=== PATIENT | male | born 1990 | race Caucasian/White ===

== ENCOUNTER 2017-06-29 19:21 | Emergency (ER) | payer MEDICAID, OTHER ==
[~2017-06-29] VITALS: Ht 172.7 cm; Wt 68.2 kg
[2017-06-29 19:30] VITALS: Ht 172.7 cm; Wt 68.2 kg
[2017-06-29] MEDS ORDERED: LORAZEPAM 2 MG INJ IM ONE (20:00)
[2017-06-29] MEDS ORDERED: SOD CHLORIDE 0.9% 500 ML IV ONE (20:30)
--- NOTE | 2017-06-29 21:02 | RADRPT ---
PROCEDURE: XR Chest. CLINICAL INDICATION: Heart palpitations. Chest pain. TECHNIQUE: Single frontal chest x-ray. COMPARISON: None available FINDINGS: The lungs volumes are diminished. There are compressive changes with vascular crowding and basilar atelectasis. No acute infiltrate is seen. The cardiomediastinal silhouette is normal. The base of the heart is elevated due to low lung volumes. The surrounding soft tissues and osseous structures are unremarkable. IMPRESSION: 1. Low lung volumes with compressive changes and basilar atelectasis. 2. Otherwise, unremarkable chest x-ray. No acute infiltrate is seen. RPTAT: HMJB .Eriberto Zendejas MD, MD Date Time Electronically viewed and signed by .Eriberto Zendejas MD, on 06/29/2017 21:02 .B/
[2017-06-29 22:48] VITALS: BP 187/90; PULSE 89; RESP 20
[2017-06-29] MEDS ORDERED: ALPR0.5T PO (23:24)
--- NOTE | 2017-06-29 23:35 | ERD ---
ER Documentation Chief Complaint Chief Complaint HP WITH CP FOLLOWING METH INGESTION HPI 87-year-old male presents emergency room for feeling his heart racing. Occurred approximately 3 hours ago. He has absolutely no chest pain or shortness of breath. Denies nausea and vomiting. States that he is used meth before and has not had palpitations like this. Is otherwise healthy and feels well except for the racing heart. Denies lightheadedness or dizziness. He has had no fevers or chills and denies IV drug use. ROS All systems reviewed and are negative except as per history of present illness. Medications Home Meds Active Scripts Alprazolam* (Xanax*) 0.5 Mg Tab, 0.5 MG PO Q8H Y for ANXIETY, #5 TAB Prov:MARK ROSALES DO 06/29/17 PMhx/Soc Medical and Surgical Hx: pt denies Medical Hx, pt denies Surgical Hx Hx Alcohol Use: Yes Hx Substance Use: Yes (METH) Hx Tobacco Use: No Smoking Status: Never smoker Physical Exam Vitals Vital Signs Date Time Temp Pulse Resp B/P Pulse Ox O2 Delivery O2 Flow Rate FiO2 06/29/17 22:48 89 20 187/90 99 Room Air 06/29/17 19:30 99.5 120 20 154/100 98 Physical Exam Const: [] Mild distress Head: Atraumatic Eyes: Normal Conjunctiva, pupils equal and reactive to light ENT: Normal External Ears, Nose and Mouth. Neck: Full range of motion..~ No JVD Resp: Clear to auscultation bilaterally Cardio: Regular tachycardia, no murmurs Abd: Soft, non tender, non distended. Normal bowel sounds Skin: No petechiae or rashes Back: No midline or flank tenderness Ext: No cyanosis, or edema Neur: Awake and alert and oriented 3, no focal deficits, cranial 2 through 12 intact, conversive without slurred speech. Psych: Normal Mood and Affect Results 24 hrs Laboratory Tests Test 06/29/17 19:33 Troponin I < 0.012ng/ml Current Medications Medications (Trade) Dose Ordered Sig/Cedric Route PRN Reason Start Time Stop Time Status Last Admin Dose Admin Lorazepam 1 mg 1 mg ONCE ONCE IM 06/29/17 20:00 06/29/17 20:01 DC 06/29/17 20:00 Sodium Chloride (NS) 500 ml @ 500 mls/hr Q1H ONCE IV 06/29/17 20:30 06/29/17 21:29 DC 06/29/17 20:47 Procedures/MDM 27-year-old male palpitations following meth ingestion. No signs of ischemia on EKG. Was given 1 mg of Ativan and 500 cc of IV fluids normalize his heart rate and take away all of his symptoms. Same symptomatic currently managed discharge with instructions see primary care doctor in the next 2 days and obtain an echocardiogram. Negative troponin also discharging with 5 tabs of Xanax. EKG interpretation: Sinus tachycardia, right axis deviation, mild artifact, no ST or T-wave changes concerning for acute ischemia. Abnormal EKG Chronic monitor interpretation: Sinus tachycardia followed by normal sinus rhythm without arrhythmia Departure Diagnosis: Primary Impression: Methamphetamine abuse Additional Impressions: Tachycardia Right axis deviation Condition: Stable Patient Instructions: Understanding Methamphetamine Abuse and Addiction, Sinus Tachycardia Referrals: [facility] YOU HAVE RECEIVED A MEDICAL SCREENING EXAM AND THE RESULTS INDICATE THAT YOU DO NOT HAVE A CONDITION THAT REQUIRES URGENT TREATMENT IN THE EMERGENCY DEPARTMENT. FURTHER EVALUATION AND TREATMENT OF YOUR CONDITION CAN WAIT UNTIL YOU ARE SEEN IN YOUR DOCTORS OFFICE WITHIN THE NEXT 1-2 DAYS. IT IS YOUR RESPONSIBILITY TO MAKE AN APPOINTMENT FOR FOLOW-UP CARE. IF YOU HAVE A PRIMARY DOCTOR --you should call your primary doctor and schedule an appointment IF YOU DO NOT HAVE A PRIMARY DOCTOR YOU CAN CALL OUR PHYSICIAN REFERRAL HOTLINE AT IF YOU CAN NOT AFFORD TO SEE A PHYSICIAN YOU CAN CHOSE FROM THE FOLLOWING [facility] [address] [facility]. [facility] [address] [email or web address] [address] [facility] [facility] [address] [facility]. [facility] [address] [facility]. [facility]. [address] Additional Instructions: Llame al doctor AD y josue nayeli RAUDEL PARA DENTRO DE 1-2 FULLER. Consigue un referral para un ECHOCARDIOGRAMA. Dgale a la secretaria que nosotros le instruimos hacer esta raudel.Avise o llame si rodriguez condicin se empeora antes de la raudel. Regresa aqui si peor o no mejor. MARK ROSALES DO Jun 29, 2017 23:35
== END 2017-06-29 23:00 | disposition home or self-care (01) ==
LOC: EDBD 19:21 → E/R 19:21
DX: F15.10 Other stimulant abuse, uncomplicated (principal); R94.31 Abnormal electrocardiogram [ECG] [EKG]; R40.2142 Coma scale, eyes open, spontaneous, at arrival to emergency department; R40.2252 Coma scale, best verbal response, oriented, at arrival to emergency department; R40.2362 Coma scale, best motor response, obeys commands, at arrival to emergency department
CPT/HCPCS: 36415; 71010; 84484; 93005; 96372; J2060; J7040; Z7502

== ENCOUNTER 2017-07-01 23:19 | Emergency (ER) | payer SELFPAY ==
[~2017-07-01] VITALS: Ht 170.2 cm; Wt 75.9 kg
[~2017-07-01 23:19] MED LIST: ALPR0.5T PO
[2017-07-02] VITALS: Ht 170.2 cm; Wt 75.9 kg
--- NOTE | 2017-07-02 03:13 | ERD ---
ER Documentation Chief Complaint Chief Complaint pt reports palpitations today HPI 27-year-old male presents here to emergency department for complaints of palpitation episodes on and off today, patient was seen in the emergency department 2 days ago, was diagnosed of anxiety, patient does admit to feeling anxious. Patient was given Ativan which helped with some of his symptoms. At this time, patient denies any pain. His palpitations has been improved and resolved. Patient denies any shortness of breath. ROS All systems reviewed and are negative except as per history of present illness. Medications Home Meds Active Scripts Alprazolam* (Xanax*) 0.5 Mg Tab, 0.5 MG PO Q8H Y for ANXIETY, #5 TAB Prov:MARK ROSALES DO 06/29/17 Allergies Allergies: Coded Allergies: No Known Allergy (Unverified , 07/02/17) PMhx/Soc Medical and Surgical Hx: pt denies Medical Hx, pt denies Surgical Hx Hx Alcohol Use: Yes Hx Substance Use: Yes (METH) Hx Tobacco Use: No Smoking Status: Never smoker FmHx Family History: No coronary disease, No diabetes, No other Physical Exam Vitals Vital Signs Date Time Temp Pulse Resp B/P Pulse Ox O2 Delivery O2 Flow Rate FiO2 07/02/17 00:00 98.3 78 16 156/87 99 Physical Exam GENERAL: The patient is well developed and appropriate for usual state of health, in no apparent distress. CHEST: Clear to auscultation bilaterally. There are no rales, wheezes or rhonchi. HEART: Regular rate and rhythm. No murmurs, clicks, rubs or gallops. No S3 or S4. ABDOMEN: Soft, nontender and nondistended. Good bowel sounds. No rebound or guarding. No gross peritonitis. No gross organomegaly or masses. No Key sign or McBurney point tenderness. BACK: No midline or flank tenderness. EXTREMITIES: Equal pulses bilaterally. There is no peripheral clubbing, cyanosis or edema. No focal swelling or erythema. Full range of motion. Grossly neurovascularly intact. NEURO: Alert and oriented. Cranial nerves 2-12 intact. Motor strength in all 4 extremities with 5/5 strength. Sensation grossly intact. Normal speech and gait. SKIN: There is no apparent rash or petechia. The skin is warm and dry. HEMATOLOGIC AND LYMPHATIC: There is no evidence of excessive bruising or lymphedema. No gross cervical, axillary, or inguinal lymphadenopathy. Results 24 hrs Patient was ordered to have EKG to be done, upon calling the patient in the waiting area, patient cannot be found, patient heart rate was normal upon initial evaluation. Procedures/MDM Medical Decision Making: Pt symptoms most likely was consistent with anxiety. There is low suspicion for cardiopulmonary emergencies at this time. Patient has low risk factors. EKG was not done since patient was not found anymore and eloped. There is low suspicion for aortic aneurysm, myocardial infarction, pneumothorax, pleural effusion, pulmonary embolism, or any other cardiopulmonary emergencies at this time. Dispostion: Eloped. Stable Disclaimer: Inadvertent spelling and grammatical errors are likely due to EHR/ dictation software use and do not reflect on the overall quality of patient care. Also, please note that the electronic time recorded on this note does not necessarily reflect the actual time of the patient encounter. Departure Diagnosis: Primary Impression: Palpitations Condition: Stable JASSI GREER NP Jul 02, 2017 03:13 JASSI GREER NP Jul 02, 2017 03:13
== END 2017-07-02 03:40 | disposition left against medical advice (07) ==
LOC: FTE 23:19
DX: R00.2 Palpitations (principal)
CPT/HCPCS: 99282

== ENCOUNTER 2017-08-02 17:37 | Emergency (ER) | END 2017-08-03 00:20 | disposition home or self-care (01) ==